=== PATIENT | female | born 1950 | race Caucasian/White ===

== ENCOUNTER → 2024-04-09 15:39 | Outpatient (REF) | payer MEDICARE, OTHER, SELFPAY | LOC: HWRAD 15:39 | PROVIDERS: ATTENDING PHYSICIAN Physical Medicine & Rehabilitation; FAMILY PHYSICIAN Internal Medicine | DX: M54.16 Radiculopathy, lumbar region (principal) | CPT/HCPCS: 72131 ==

== ENCOUNTER → 2024-05-21 10:23 | Outpatient (REF) | payer MEDICARE, OTHER, SELFPAY | LOC: HWRAD 10:23 | PROVIDERS: ATTENDING PHYSICIAN Internal Medicine | DX: Z78.0 Asymptomatic menopausal state (principal); Z12.31 Encounter for screening mammogram for malignant neoplasm of breast | CPT/HCPCS: 77063; 77067; 77080 ==

== ENCOUNTER 2025-03-23 16:08 | Emergency (ER) | payer MEDICARE, OTHER, SELFPAY ==
[2025-03-23 16:13] VITALS: BP 133/55
[2025-03-23 16:16] VITALS: BP 133/55
[2025-03-23 16:42] LABS: % Basophils 0.6 % (0-2); % Eosinophils 1.8 % (0-6); % Immature Granulocytes 0.2 % (0-0.5); % Lymphocytes 22.5 % (20.5-51.1); % Monocytes 7.7 % (1.7-9.3); % Neutrophils 67.2 % (42.2-75.2); Absolute Basophils 0.1 10^3/uL (0-0.2); Absolute Eosinophils 0.2 10^3/uL (0-0.7); Absolute Monocytes 0.7 10^3/uL (0.1-0.6); Absolute Neutrophils 6.1 10^3/uL (1.4-6.5); Hematocrit 33.8 % (37.0-47.0); Hemoglobin 12.1 g/dL (12.0-16.0); Mean Corp Hgb Conc. 35.8 g/dL (33.0-37.0); Mean Corpuscular Hgb 32.6 pg (27.0-31.0); Mean Corpuscular Volume 91.1 fL (81.0-99.0); Mean Platelet Volume 11.1 fL (7.4-10.4); Nucleated Red Blood Cells % 0 %; Platelet Count 257 10^3/uL (130-400); Red Blood Cell Count 3.71 10^6/uL (4.20-5.40); Red Cell Dist. Width 13.2 % (11.5-14.5)
[2025-03-23 16:59] LABS: ALT (SGPT) 14 U/L (0-35); AST (SGOT) 20 U/L (14-36); Albumin 3.8 g/dl (3.5-5.0); Alkaline Phosphatase 75 U/L (38-126); Blood Urea Nitrogen 20 mg/dl (7-17); Calcium 8.8 mg/dl (8.4-10.2); Carbon Dioxide 22 mmol/L (22-30); Chloride 110 mmol/L (98-107); Estimated Creatinine Clearance 45 ml/min; Glucose 173 mg/dl (70-99); Potassium 4.1 mmol/L (3.5-5.1); Sodium 141 mmol/L (135-145); Total Bilirubin 0.4 mg/dl (0.2-1.3); Total Protein 6.2 g/dl (6.3-8.2); eGFR 46.91
[2025-03-23 17:26] LABS: Glucose - Point of Care 157 mg/dl (70-99)
[2025-03-23] MEDS: NSS 1000 IV (17:48)
[2025-03-23 18:20] LABS: Urine Albumin 1+ (Neg - Trace); Urine Bilirubin Negative (Negative); Urine Character Clear (Clear); Urine Color Yellow; Urine Glucose Negative (Negative); Urine Ketone 1+ (Negative); Urine Leukocyte 2+ (Negative); Urine Nitrite Negative (Negative); Urine Occult Blood Negative (Negative); Urine Urobilinogen Negative (Neg - 1+)
[2025-03-23 18:27] LABS: Urine Bacteria Moderate (Negative); Urine Squamous Cell >30 /LPF (Few)
[2025-03-23 19:10] VITALS: BP 153/60
[2025-03-23 19:12] VITALS: BP 170/67
[2025-03-23 19:14] VITALS: BP 161/65
[2025-03-23 19:17] VITALS: BP 153/60; BP 161/65; BP 170/67; PULSE 67; PULSE 72; PULSE 74
--- NOTE | 2025-03-23 19:20 | ED.GENMED ---
History of Present Illness
General
Chief Complaint: Fainting/Passed Out
Source: patient
Exam Limitations: none
Time Seen by Provider: 03/23/25 16:11
Nursing documentation reviewed up to this point in time: agreed with
History of Present Illness
History of Present Illness:
Patient to ED for syncopal episode while playing golf. States she suddenly felt lightheaded. Family assisted her to ground. Brought to ED via EMS for eval. SHe denies fever/chills, recent illness. +nausea. No vomiting or diarrhea. She has had
similar episodes in the past. Last episode approx 1 year ago and involved outdoor activity in the sun. SHe reports having breakfast but drinking very little today. She is now awake and alert, in no distress.
Past History
Past History
ED Past Medical History: HTN, Hypercholesterolemia and NIDDM
Social History
Tobacco: Non-smoker
Alcohol: Occasional
Drug: None
Personal:
Living: with family
Employment: Other (Noncontributory)
Family History
Family History: Other (Pacemaker)
Review of Systems
Review of Systems
Allergies reviewed?: Yes
All Other Systems: ROS reviewed and negative except as documented in HPI and ROS
Constitutional: Reports no symptoms
EENT: Reports no symptoms
Respiratory: Reports no symptoms
Cardiac: Reports syncope ([employer])
ABD/GI: Reports no symptoms
: Reports no symptoms
Musculoskeletal: Reports no symptoms
Skin: Reports no symptoms
Neurological: Reports no symptoms
Psychiatric: Reports no symptoms
Phy Exam
General Physical Exam
General Presentation: well appearing and no apparent distress
General age: appears stated age
General Skin: warm and dry
General Habitus: normal
General Mental: alert
Cardiovascular Exam
Cardiovascular Exam: regular rate/rhythm and no edema
Pulmonary Exam
Pulmonary Exam: lungs clear and no respiratory distress
Gastrointestinal Exam
Gastrointestinal Exam: non tender and soft
Neurological Exam
Neurological Exam: alert, oriented x3, CN II-XII intact, no motor deficits, speech normal and normal gait
Musculoskeletal Exam
Musculoskeletal Exam: full ROM and neuro vasc intact
Skin Exam
Skin Exam: normal color, warm/dry and no rash
Psychiatric Exam
Psychiatric Exam: normal mood/affect
Course
Orders/Labs/Results
Orders:
Orders
03/23/25 16:33
Electrocardiogram (*1) Urgent
Reason for Study: Syncope
EKG- Treatment ONCE
03/23/25 16:34
CMP [Comprehensive Metabolic Panel] Urgent
Complete Blood Count/With Diff Urgent
03/23/25 17:08
Orthostatic VS- Treatment ONCE
03/23/25 17:20
0.9% Sodium Chloride 1000 ml [Nss] 1,000 ml IV BOLUS
03/23/25 18:12
Urinalysis Reflex To Culture Urgent
Date Specimen was Collected: 03/23/25
Time Specimen was Collected: 18:08
Urine Microscopic Reflex Cult Urgent
Urine Culture Urgent
OLLIE Source: U
Specimen Description:
Obtained by: Random
Date Specimen was Collected: 03/23/25
Time Specimen was Collected: 18:08
Abnormal Lab Results
03/23/25 03/23/25 03/23/25
16:34 17:25 18:12
RBC 3.71 L 10^6/uL
(4.20-5.40)
Hct 33.8 L %
(37.0-47.0)
MCH 32.6 H pg
(27.0-31.0)
MPV 11.1 H fL
(7.4-10.4)
Absolute Monos (auto) 0.7 H 10^3/uL
(0.1-0.6)
Chloride 110 H mmol/L
(98-107)
BUN 20 H mg/dl
(7-17)
Creatinine 1.2 H mg/dL
(0.6-1.0)
Glucose 173 H mg/dl
(70-99)
Total Protein 6.2 L g/dl
(6.3-8.2)
Urine Ketones 1+ A
(Negative)
Leukocyte Esterase Rfl 2+ A
(Negative)
Urine RBC 3-6 A /HPF
(0-2)
Urine WBC (Reflex) 11-15 A /HPF
(0-5)
Urine Bacteria (Reflex) Moderate A
(Negative)
Urine Albumin (Reflex) 1+ A
(Neg - Trace)
POC Glucose 157 H mg/dl
(70-99)
03/23/25 16:34
03/23/25 16:34
Vital Signs
Initial and Last Documented VS:
Initial Vital Signs
Pulse Resp BP Pulse Ox
55 20 133/55 95
03/23/25 16:13 03/23/25 16:13 03/23/25 16:13 03/23/25 16:13
Last Documented Vital Signs
Pulse Resp BP Pulse Ox
65 15 161/65 94
03/23/25 18:45 03/23/25 18:45 03/23/25 19:14 03/23/25 19:30
*Radiology
Radiology exam reviewed: radiology read reviewed
*Pulse Oximetry
Patient hypoxic: no
*EKG
Interpretation: normal
Rate: normal
Rhythm: sinus
*Critical Care Note
Total Time (30-74mins, 75-104mins- exclusive of procedures): Not Applicable
Update Note
Update Note:
Patient to ED after syncopal event while playing minigolf. SHe has remained asymptomatic in ED. VSS/afebrile. EKG NSR. Labs reviewed. Creat slightly elevated at 1.2. SHe reports drinking very little today. Rehydrated with IVF. Patient
reports she is feeling well and would like to go home. No concerning findings on exam today. Will discharge home. SHe was given instructions on s/s to return to ED and she is agreeable to plan.
ED Attending Note
-
Portions of this chart may have been created with voice recognition software.� Occasional wrong word or��sound alike� substitutions may have occurred due to the inherent limitations of voice recognition software.
Discharge Plan
Departure
Patient Disposition: Home (Routine Discharge)
Date of Disposition: 03/23/25
Time of Disposition: 19:27
Patient with high blood pressure during this ER visit?: No
Condition: Good
Covid-19: Not Applicable
Discharge Problem:
Syncope
Instructions: Syncope (Fainting) (DC)
Prescriptions:
No Action
pravastatin 10 MG tablet
10 mg PO DAILY@1500
cyanocobalamin (vitamin B-12) 1,000 MCG tablet
1,000 mcg PO DAILY
multivitamin with folic acid [Tab-A-Tre] 1 TABLET tablet
1 tab PO DAILY
repaglinide 1 MG tablet
1 mg PO QPM
repaglinide 0.5 mg Tablet
0.5 mg PO DAILY
mupirocin 2 % ointment
1 applic topical BID Qty: 1 0RF
docusate sodium [Colace] 100 mg capsule
100 mg PO BID Qty: 30 0RF
senna 8.6 mg capsule
17.2 mg PO BID Qty: 30 0RF
acetaminophen [Acetaminophen Extra Strength] 500 mg tablet
1,000 mg PO Q8H Qty: 60 0RF
Rx Instructions:
DO NOT exceed >3000 mg daily.
hydralazine 10 MG tablet
20 mg PO BID Qty: 1 0RF
Rx Instructions:
Hold if systolic blood pressure <130 while on post-op pain meds.
aspirin 325 MG tablet
325 mg PO DAILY Qty: 30 0RF
Rx Instructions:
Take daily x4 weeks for blood clot prevention.
valsartan [Diovan] 320 MG tablet
320 mg PO HS Qty: 0 0RF
Rx Instructions:
Hold if systolic blood pressure <130 while on post-op pain meds.
dexamethasone 4 mg tablet
4 mg PO BID Qty: 6 0RF
Rx Instructions:
take with food
post-op use only
oxycodone 5 mg tablet
5 - 10 mg PO Q6HPRN PRN (Reason: 1 tab moderate-2 tabs severe pain) Qty: 30 0RF
Rx Instructions:
Dx TKA
ongoing therapy
prochlorperazine maleate [Compazine] 5 mg tablet
5 mg PO TID PRN (Reason: n/v) Qty: 20 0RF
scopolamine base 1 mg over 3 days Patch 3 Day
1 patch transdermal NOW Qty: 1 0RF
Rx Instructions:
REMOVE THIS PATCH ON 12/04 AM
Referrals:
Lisseth Messina MD [Family Provider] - Tomorrow
Activity Restrictions/Additional Instructions:
Return to the emergency department immediately for return of your symptoms or for any further concerns.
Interventions
Interventions:
*Risk Screen - Suicide Last Done: 03/23/25 16:29
*General Assessment Last Done: 03/23/25 16:29
*Neglect/Abuse Screening Last Done: 03/23/25 16:29
*ED- Fall Risk Assessment Last Done: 03/23/25 16:30
*ED COVID-19 Vaccine History Last Done: 03/23/25 16:30
*Nursing Disposition Last Done: 03/23/25 19:58
ED- Cardiac Assessment Last Done: 03/23/25 16:31
ED- Neurological Assessment Last Done: 03/23/25 16:31
Discharge Date and Time
Discharge Date/Time: 03/23/25 20:00
Print Language: TURKISH
== END 2025-03-23 20:00 | disposition home or self-care (01) ==
LOC: EMR 16:08
PROVIDERS: Nurse Practitioner; EMERGENCY PHYSICIAN Emergency Medicine; FAMILY PHYSICIAN Internal Medicine
DX: R55 Syncope and collapse (principal); R11.0 Nausea; E11.9 Type 2 diabetes mellitus without complications; E78.00 Pure hypercholesterolemia, unspecified; I10 Essential (primary) hypertension; G62.9 Polyneuropathy, unspecified; R01.1 Cardiac murmur, unspecified; I48.91 Unspecified atrial fibrillation; M19.90 Unspecified osteoarthritis, unspecified site; Z79.82 Long term (current) use of aspirin; Z90.49 Acquired absence of other specified parts of digestive tract; Z88.6 Allergy status to analgesic agent; Z88.1 Allergy status to other antibiotic agents; Z88.5 Allergy status to narcotic agent; Z88.8 Allergy status to other drugs, medicaments and biological substances
CPT/HCPCS: 99284; 96360; 80053; 81003; 81015; 82962; 85025; 87086; 93005

== ENCOUNTER → 2025-08-15 13:32 | Outpatient (REF) | payer MEDICARE, OTHER, SELFPAY | LOC: HWWDC 13:32 | PROVIDERS: ATTENDING PHYSICIAN Internal Medicine | DX: Z12.31 Encounter for screening mammogram for malignant neoplasm of breast (principal) | CPT/HCPCS: 77063; 77067 ==

== ENCOUNTER → 2025-08-29 10:40 | Outpatient (REF) | payer MEDICARE, OTHER, SELFPAY | LOC: WDC 10:40 | PROVIDERS: ATTENDING PHYSICIAN Internal Medicine | DX: R92.8 Other abnormal and inconclusive findings on diagnostic imaging of breast (principal) | CPT/HCPCS: 76642 ==